=== PATIENT | female | born 1990 | race Caucasian/White ===

== ENCOUNTER 2021-08-30 06:37 | Emergency (ER) | payer BC ==
[~2021-08-30] VITALS: Ht 170.2 cm; Wt 70.5 kg
[2021-08-30] MEDS ORDERED: COMPAZINE10 M2 PO (09:43)
[2021-08-30] MEDS ORDERED: IBU800 M1 PO (09:43)
[2021-08-30 10:10] VITALS: BP 126/72
== END 2021-08-30 10:10 | disposition home or self-care (01) ==
LOC: ED 06:37
DX: U07.1 COVID-19 (principal); F17.210 Nicotine dependence, cigarettes, uncomplicated
CPT/HCPCS: J0780; J1885

== ENCOUNTER → 2022-10-27 | Outpatient (CLI) | payer SELFPAY ==
[~2022-10-27] MED LIST: COMPAZINE10 M2 PO; IBU800 M1 PO
[2022-10-27 11:40] LABS: BASO # 0.02 K/mm3 (0.02-0.10); EOS # 0.17 K/mm3 (0.04-0.40); EOS % 1.6 % (1.0-5.0); HEMATOCRIT 41.8 % (37.0-47.0); HEMOGLOBIN 13.4 g/dL (12.5-16.0); LYMPH# 2.45 K/mm3 (1.50-4.00); MEAN CELL VOLUME 83 fl (78-100); MEAN CORPUSCULAR HEMOGLOBIN 27 pg (27-31); MEAN CORPUSCULAR HGB CONC 32 g/dL (33-37); MONO # 0.78 K/mm3 (0.20-0.80); NEU # 7.01 K/mm3 (1.40-6.50); PLATELET COUNT 376 K/mm3 (130-400); RED BLOOD COUNT 5.05 M/mm3 (4.10-5.30); RED CELL DISTRIBUTION WIDTH 13.2 % (11.5-14.5); WHITE BLOOD COUNT 10.4 K/mm3 (4.8-10.8)
[2022-10-27 11:47] LABS: ALBUMIN 4.2 g/dL (3.5-5.0); POTASSIUM 4.6 mmol/L (3.5-5.1)
[2022-10-27 11:48] LABS: CALCIUM 9.8 mg/dL (8.3-10.5)
[2022-10-27 11:49] LABS: TOTAL PROTEIN 7.4 g/dL (6.4-8.3)
[2022-10-27 11:51] LABS: TOTAL BILIRUBIN 0.2 mg/dL (0.2-1.2)
== END ==
LOC: LAB 11:21
PROVIDERS: Internal Medicine
DX: F32.1 Major depressive disorder, single episode, moderate (principal); F90.0 Attention-deficit hyperactivity disorder, predominantly inattentive type; F19.10 Other psychoactive substance abuse, uncomplicated